=== PATIENT | female | born 1985 | race Caucasian/White ===

== ENCOUNTER 2017-01-07 07:23 | Day surgery (SDC) | payer OTHER ==
[~2017-01-07] VITALS: Ht 177.8 cm; Wt 88.5 kg
[2017-01-07] MEDS ORDERED: NORCO 10-325 T1 EACH PO (08:04)
[2017-01-07] MEDS ORDERED: LARIN FE 1-201 EACH PO (08:05)
[2017-01-08 05:06] LABS: HEMOGLOBIN 12.4 gm/dl (12.3-15.3)
[2017-01-08] MEDS ORDERED: IBUPROFEN600 MG PO (08:58)
[2017-01-08] MEDS ORDERED: COLACE 100MG C100 MG PO (08:58)
== END 2017-01-08 10:52 | disposition home or self-care (01) ==
LOC: OR 07:23 → MED SURG 4 12:30 → OR 01-08 10:52
PROVIDERS: Obstetrics & Gynecology
PROC: 0UT74ZZ Resection of Bilateral Fallopian Tubes, Percutaneous Endoscopic Approach (ICD-10-PCS; 2017-01-07)
PROC: 0UTC4ZZ Resection of Cervix, Percutaneous Endoscopic Approach (ICD-10-PCS; 2017-01-07)
PROC: 0UBM0ZZ Excision of Vulva, Open Approach (ICD-10-PCS; 2017-01-07)
PROC: 0UT94ZZ Resection of Uterus, Percutaneous Endoscopic Approach (ICD-10-PCS; principal; 2017-01-07 09:45)
DX: D06.9 Carcinoma in situ of cervix, unspecified (principal); L72.0 Epidermal cyst; N80.0 Endometriosis of uterus; K21.9 Gastro-esophageal reflux disease without esophagitis; B18.2 Chronic viral hepatitis C; F17.210 Nicotine dependence, cigarettes, uncomplicated; Z90.49 Acquired absence of other specified parts of digestive tract; Z98.51 Tubal ligation status; Z79.899 Other long term (current) drug therapy
CPT/HCPCS: 11403; 36415; 85014; 85018; J0690; J1100; J1885; J2060; J2250; J2405; J2710; J2795; J3010; J7120